=== PATIENT | female | born 1945 | race Caucasian/White ===

== ENCOUNTER 2021-01-02 15:32 | Outpatient (CLI) | payer MEDICARE ==
[2021-01-02 16:43] LABS: Hemoglobin 12.9 g/dL (12.0-15.5); Mean Corpuscular HGB CONC 33.3 g/dL (32.0-36.0); Mean Corpuscular Hemoglobin 29.9 pg (27.0-33.0); Mean Corpuscular Volume 89.6 fl (81.6-98.3); Mean Platelet Volume 11.9 fl (7.4-10.4); Platelet Count 226 10x3/uL (150-450); RBC Distribution Width 13.9 % (11.5-14.5); Red Blood Cell (RBC) Count 4.32 10x6/uL (3.90-5.03); White Blood Cell (WBC) Count 6.5 10x3/uL (3.5-10.5)
[2021-01-02 16:59] LABS: INR-International Normal Ratio 0.9; PTT 29.4 sec (22.0-33.0); Prothrombin Time 10.4 sec (9.5-12.1)
[2021-01-03 16:26] LABS: SARS-CoV-2 PCR by NAA Not Detected (NotDetected)
== END 2021-01-02 15:33 | disposition home or self-care (01) ==
LOC: LABBT 15:32
PROVIDERS: ATTEND Neurological Surgery
DX: Z01.812 Encounter for preprocedural laboratory examination (principal); M54.16 Radiculopathy, lumbar region; M43.16 Spondylolisthesis, lumbar region; Z20.822 Contact with and (suspected) exposure to COVID-19
CPT/HCPCS: 85027; 85610; 85730; U0003; U0005

== ENCOUNTER 2021-01-06 06:08 | Inpatient (IN) | payer MEDICARE ==
[2020-12-31 11:56] VITALS: BMI 19.3
[2021-01-06] MEDS ORDERED: Neomycin-Polymyxin 1 ML AMP ONE (06:26)
[2021-01-06] MEDS ORDERED: EPINEPHrine 1 MG/ML AMP ONE (06:26)
[2021-01-06] MEDS ORDERED: Thrombin 5000 UNITS/5 ML VIAL ONE (06:26)
[2021-01-06] MEDS ORDERED: Bupivacaine PF 0.5% 30 ML VIAL ONE (06:26)
[2021-01-06] MEDS ORDERED: Ketamine 50 MG/ML (10ML VIAL) ONE (06:54)
[2021-01-06] MEDS ORDERED: Fentanyl 100 MCG/2 ML VIAL ONE ×2 (06:54→11:27)
[2021-01-06] MEDS ORDERED: Famotidine/PF 20 mg/2ml Vial ONE (06:55)
[2021-01-06] MEDS ORDERED: Midazolam HCl 2 mg/2 ml Vial ONE (06:55)
[2021-01-06] MEDS ORDERED: HYDROmorphone 2 MG/ML VIAL ONE (06:57)
[2021-01-06] MEDS ORDERED: Bisacodyl 10 MG SUPP PR PRN (07:10)
[2021-01-06] MEDS ORDERED: Mag-Al 1200 mg/1200 mg/30 ML UDCUP PO PRN (07:10)
[2021-01-06] MEDS ORDERED: diphenhydrAMINE 50 MG/ML VIAL IVP PRN (07:10)
[2021-01-06] MEDS ORDERED: Scopolamine 1.5 mg/72 hour Patch ONE (07:11)
[2021-01-06] MEDS ORDERED: Glycopyrrolate 0.2 MG/ML 5 ML SYRINGE ONE (07:14)
[2021-01-06] MEDS ORDERED: ePHEDrine 50 MG/ML VIAL ONE (07:14)
[2021-01-06] MEDS ORDERED: PHENYLEPHRINE-NS 100 MCG/ML 10 ML SYRINGE ONE ×2 (07:14→08:37)
[2021-01-06] MEDS ORDERED: Lidocaine 1% PF 5 ML VIAL ONE (07:14)
[2021-01-06] MEDS ORDERED: diphenhydrAMINE 50 MG/ML VIAL ONE (07:14)
[2021-01-06] MEDS ORDERED: Dexamethasone 20 MG/5 ML VIAL ONE (07:14)
[2021-01-06] MEDS ORDERED: PROPOFOL 200 MG/20 ML VIAL ONE (07:14)
[2021-01-06] MEDS ORDERED: Ondansetron PF 4 MG/2 ML Vial ONE (07:14)
[2021-01-06] MEDS ORDERED: Rocuronium Bromide 10 MG/ML (10ML VIAL) ONE (07:14)
[2021-01-06] MEDS ORDERED: ePHEDrine Sulfate 50 MG/10 ML VIAL ONE ×2 (08:37→09:47)
[2021-01-06] MEDS ORDERED: Promethazine HCl 25 MG/ML VIAL IVPB PRN (10:36)
[2021-01-06] MEDS ORDERED: Promethazine HCl 25 MG/ML VIAL IM PRN (10:36)
[2021-01-06] MEDS ORDERED: Ondansetron HCl/PF 4 MG/2 ML Vial IVP PRN (10:36)
[2021-01-06] MEDS ORDERED: SUGAMMADEX SODIUM 200 MG/2 ML VIAL ONE (10:40)
[2021-01-06] MEDS ORDERED: Promethazine HCl 25 MG/ML VIAL ONE (11:27)
[2021-01-06] MEDS ORDERED: Acetaminophen/Codeine 30-300mg Tablet ONE (14:32)
[2021-01-06] MEDS: Acetaminophen/Codeine 30-300mg Tablet PO PRN ×2 (14:37→20:24)
[2021-01-06] MEDS ORDERED: CEFAZOLIN 2 GM in Premix Bag 1 BAG IVPB SCH (15:00)
[2021-01-06] MEDS: Sodium Chloride 0.9% 1,000 ML IV SCH ×2 (16:05→20:40)
[2021-01-06] MEDS: Cholecalciferol 1,000 UNITS (25 MCG) TAB PO SCH (16:06)
[2021-01-06] MEDS ORDERED: CEFAZOLIN 2 GM, Admixture Fee 1 EACH in Sodium Chloride 0.9% 100 ML IVPB SCH (18:30)
[2021-01-06] MEDS: Pregabalin 50 MG CAP PO SCH (20:22)
[2021-01-06] MEDS: Montelukast Sodium 10 mg Tablet PO SCH (20:22)
[2021-01-07] MEDS ORDERED: CEFAZOLIN 2 GM, Admixture Fee 1 EACH in Sodium Chloride 0.9% 100 ML IVPB SCH (02:00)
[2021-01-07] MEDS: tiZANidine HCl 4 MG TAB PO PRN ×2 (02:27→20:39)
[2021-01-07] MEDS: Acetaminophen/Codeine 30-300mg Tablet PO PRN ×4 (02:28→20:40)
[2021-01-07] MEDS: Levothyroxine Sodium 88 MCG TAB PO SCH (05:23)
[2021-01-07] MEDS ORDERED: Famotidine 20 MG TAB PO PRN (09:00)
[2021-01-07] MEDS: Ondansetron PF 4 MG/2 ML Vial IVP PRN (09:40)
[2021-01-07] MEDS: Cholecalciferol 1,000 UNITS (25 MCG) TAB PO SCH (09:41)
[2021-01-07] MEDS: Pregabalin 50 MG CAP PO SCH ×2 (09:41→20:39)
[2021-01-07] MEDS: Sodium Chloride 0.9% 1,000 ML IV SCH (09:42)
[2021-01-07] MEDS: Montelukast Sodium 10 mg Tablet PO SCH (20:39)
[2021-01-07] MEDS: Mometasone Furoate 120 PUFF 220 MCG INH SCH (22:23)
[2021-01-08] MEDS: Acetaminophen/Codeine 30-300mg Tablet PO PRN ×4 (00:46→20:42)
[2021-01-08] MEDS: Sodium Chloride 0.9% 1,000 ML IV SCH ×3 (01:32→22:20)
[2021-01-08] MEDS: HYDROcodone/Acetaminophen 10/325 mg Tablet PO PRN ×2 (05:22→15:11)
[2021-01-08] MEDS: Levothyroxine Sodium 88 MCG TAB PO SCH (05:22)
[2021-01-08] MEDS: Milk Of Magnesia 30 ML UDCUP PO PRN (05:29)
[2021-01-08 07:45] LABS: #Basophils 0.1 thou/uL (0.0-0.2); #Lymphocytes 2.1 thou/uL (1.20-3.40); #Monocytes 1.2 thou/uL (0.11-0.59); #Neutrophils 7.3 thou/uL (1.40-6.50); %Basophils 0.6 % (0.0-1.0); %Eosinophils 0.4 % (0.0-10.0); %Lymphocytes 19.7 % (21.0-51.0); %Monocytes 11.3 % (0.0-10.0); %Neutrophils 68.1 % (42.0-75.0); Hemoglobin 10.6 g/dL (12.0-16.0); Mean Corpuscular HGB CONC 33.8 g/dL (32.0-36.0); Mean Corpuscular Hemoglobin 31.8 pg (27.0-31.0); Mean Corpuscular Volume 94.1 fL (78.0-98.0); Mean Platelet Volume 9.6 fL (7.4-10.4); Platelet Count 177 thou/uL (130-400); RBC Distribution Width 13.2 % (11.5-14.5); Red Blood Cell (RBC) Count 3.33 mill/uL (4.20-5.40); White Blood Cell (WBC) Count 10.7 thou/uL (4.8-10.8)
[2021-01-08 07:58] LABS: Bacteria/HPF None Seen HPF (None Seen); Bilirubin Negative (Negative); Blood, Urine Negative (Negative); Clarity Clear (Clear); Glucose, Urine (Dipstick) Normal (Negative); Ketone, Urine 10 mg/dL (Negative); Leukocyte Negative Leu/uL (Negative); Nitrite Negative (Negative); Protein, Urine (Dipstick) 20 mg/dL (Neg-Trace); RBC/HPF 0-3 HPF (0-3); Specific Gravity, Urine 1.016 (1.002-1.036); Squamous Epithelial 0-3 HPF (0-3); Urobilinogen Normal mg/dL (Less than 2)
[2021-01-08 07:59] LABS: Urine Culture Reflex Yes Yes
[2021-01-08] MEDS: Ondansetron PF 4 MG/2 ML Vial IVP PRN (09:00)
[2021-01-08] MEDS: Pregabalin 50 MG CAP PO SCH ×2 (09:00→20:41)
[2021-01-08] MEDS ORDERED: OTEZLA 30 MG TABLET PO SCH (09:00)
[2021-01-08] MEDS: Cholecalciferol 1,000 UNITS (25 MCG) TAB PO SCH (09:00)
[2021-01-08] MEDS: Mometasone Furoate 120 PUFF 220 MCG INH SCH (19:00)
[2021-01-08] MEDS: Montelukast Sodium 10 mg Tablet PO SCH (20:40)
[2021-01-08] MEDS: tiZANidine HCl 4 MG TAB PO PRN (20:41)
[2021-01-09] MEDS: Acetaminophen/Codeine 30-300mg Tablet PO PRN ×2 (02:03→10:42)
[2021-01-09] MEDS: Levothyroxine Sodium 88 MCG TAB PO SCH (05:43)
[2021-01-09] MEDS: HYDROcodone/Acetaminophen 10/325 mg Tablet PO PRN ×2 (06:27→15:35)
[2021-01-09] MEDS ORDERED: Chloraseptic Spray 180 ml Bottle PO PRN (07:05)
[2021-01-09] MEDS: Pregabalin 50 MG CAP PO SCH ×2 (10:42→21:21)
[2021-01-09] MEDS: Cholecalciferol 1,000 UNITS (25 MCG) TAB PO SCH (10:43)
[2021-01-09] MEDS: Milk Of Magnesia 30 ML UDCUP PO PRN (10:45)
[2021-01-09] MEDS: Sodium Chloride 0.9% 1,000 ML IV SCH (15:36)
[2021-01-09] MEDS ORDERED: FLU VACC QS2021-22(65YR UP)/PF 240 MCG/0.7 ML SYRINGE IM ONE (17:15)
[2021-01-09] MEDS: tiZANidine HCl 4 MG TAB PO PRN (21:21)
[2021-01-09] MEDS: Montelukast Sodium 10 mg Tablet PO SCH (21:21)
[2021-01-09] MEDS: HYDROcodone/Acetaminophen 7.5/325 mg Tablet PO PRN (22:21)
[2021-01-10] MEDS: Mometasone Furoate 120 PUFF 220 MCG INH SCH (00:15)
[2021-01-10] MEDS: HYDROcodone/Acetaminophen 7.5/325 mg Tablet PO PRN (03:35)
[2021-01-10] MEDS: tiZANidine HCl 4 MG TAB PO PRN (03:36)
[2021-01-10] MEDS: Sodium Chloride 0.9% 1,000 ML IV SCH ×2 (04:12→19:20)
[2021-01-10] MEDS: Levothyroxine Sodium 88 MCG TAB PO SCH (05:01)
[2021-01-10] MEDS: Acetaminophen/Codeine 30-300mg Tablet PO PRN (05:03)
[2021-01-10] MEDS: Pregabalin 50 MG CAP PO SCH ×2 (09:22→21:03)
[2021-01-10] MEDS: Cholecalciferol 1,000 UNITS (25 MCG) TAB PO SCH (09:23)
[2021-01-10] MEDS: Loratadine 10 MG TAB PO PRN (09:31)
[2021-01-10] MEDS: HYDROcodone/Acetaminophen 10/325 mg Tablet PO PRN (15:46)
[2021-01-10] MEDS: Montelukast Sodium 10 mg Tablet PO SCH (21:03)
[2021-01-11] MEDS: Acetaminophen/Codeine 30-300mg Tablet PO PRN ×4 (00:27→20:39)
[2021-01-11] MEDS: tiZANidine HCl 4 MG TAB PO PRN ×3 (00:27→20:39)
[2021-01-11] MEDS: HYDROcodone/Acetaminophen 10/325 mg Tablet PO PRN ×2 (02:31→19:27)
[2021-01-11] MEDS: Levothyroxine Sodium 88 MCG TAB PO SCH (05:49)
[2021-01-11] MEDS: Milk Of Magnesia 30 ML UDCUP PO PRN (05:55)
[2021-01-11] MEDS: Mometasone Furoate 120 PUFF 220 MCG INH SCH ×2 (06:39→18:45)
[2021-01-11] MEDS: Sodium Chloride 0.9% 1,000 ML IV SCH ×2 (08:10→20:43)
[2021-01-11] MEDS: Pregabalin 50 MG CAP PO SCH ×2 (08:11→20:38)
[2021-01-11] MEDS: Cholecalciferol 1,000 UNITS (25 MCG) TAB PO SCH (08:13)
[2021-01-11] MEDS: Montelukast Sodium 10 mg Tablet PO SCH (20:38)
[2021-01-11] MEDS: Loratadine 10 MG TAB PO PRN (20:46)
[2021-01-12] MEDS: HYDROcodone/Acetaminophen 10/325 mg Tablet PO PRN ×3 (03:10→15:55)
[2021-01-12] MEDS: tiZANidine HCl 4 MG TAB PO PRN (04:26)
[2021-01-12] MEDS: Acetaminophen/Codeine 30-300mg Tablet PO PRN ×2 (04:28→13:33)
[2021-01-12] MEDS: Levothyroxine Sodium 88 MCG TAB PO SCH (04:28)
[2021-01-12] MEDS: Pregabalin 50 MG CAP PO SCH (08:11)
[2021-01-12] MEDS: Cholecalciferol 1,000 UNITS (25 MCG) TAB PO SCH (08:11)
[2021-01-12] MEDS: Sodium Chloride 0.9% 1,000 ML IV SCH (08:12)
[2021-01-12 09:38] VITALS: BP 113/65; TEMP 98.1
[2021-01-12] MEDS: Loratadine 10 MG TAB PO PRN (10:37)
== END 2021-01-12 17:19 | DRG 454 ==
LOC: SDC 06:08 → T4-A 07:10 → SDC 16:15 → T4-A 16:15
PROVIDERS: ADMIT Neurological Surgery; ATTEND Neurological Surgery
PROC: 0SG00AJ Fusion of Lumbar Vertebral Joint with Interbody Fusion Device, Posterior Approach, Anterior Column, Open Approach (ICD-10-PCS; principal; 2021-01-06)
PROC: 0SG0071 Fusion of Lumbar Vertebral Joint with Autologous Tissue Substitute, Posterior Approach, Posterior Column, Open Approach (ICD-10-PCS; 2021-01-06)
PROC: 01NB0ZZ Release Lumbar Nerve, Open Approach (ICD-10-PCS; 2021-01-06)
PROC: 0SB20ZZ Excision of Lumbar Vertebral Disc, Open Approach (ICD-10-PCS; 2021-01-06)
DX: M48.061 Spinal stenosis, lumbar region without neurogenic claudication (principal); J98.11 Atelectasis; Z20.822 Contact with and (suspected) exposure to COVID-19; M43.16 Spondylolisthesis, lumbar region; M54.16 Radiculopathy, lumbar region; M19.90 Unspecified osteoarthritis, unspecified site; J45.909 Unspecified asthma, uncomplicated; G89.29 Other chronic pain; E03.9 Hypothyroidism, unspecified; I95.9 Hypotension, unspecified; Z90.89 Acquired absence of other organs; Z98.51 Tubal ligation status; Z79.899 Other long term (current) drug therapy; Z87.891 Personal history of nicotine dependence
CPT/HCPCS: 36415; 71045; 76000; 81001; 85025; 87086; 93970; C1713; C1768; C1776; J0171; J0690; J1100; J1170; J1200; J2250; J2405; J2550; J2704; J3010; J3370; J3490; J7050; S0020; S0028